=== PATIENT | female | born 1990 | race Caucasian/White ===

== ENCOUNTER 2017-07-08 14:10 | Inpatient (IN) | payer OTHER ==
--- NOTE | 2017-07-08 14:52 | HP ---
General Information - General Information Maternal Age: 27 Grav: 2 Para: 1 SAB: 0 IEA: 0 Estimated Due Date: 07/11/17 Determined By: Early Ultrasound Gestational Age in Weeks and Days: 39 Weeks and 4 Days Maternal Blood Type and Rh: B Positive - Results this Serology/RPR Result: Non-Reactive Rubella Result: Immune HBsAg Result: Negative HIV Result: Negative GBS Culture Result: Negative Past Medical History Delivery History: Hx Uncomplicated Vaginal Delivery Past Medical History Comment: varicose veins, R leg hx migraine Pertinent Past Surgical History: None Pertinent Family History: Non-Contributory - Antepartal Records Antepartal Records: Reviewed, Uncomplicated Review of Systems Constitutional: Comfortable CV Complaint: No Respiratory: Shortness of Breath: No Gastrointestinal: No Nausea/Vomiting - Constipation Genitourinary: No Leaking Fluid Musculoskeletal: Contractions Neurological: No Headache, No Visual Changes Movement: Normal Exam Allergies/Adverse Reactions: Allergies MS Amoxicillin [Amoxicillin] Allergy (Verified 01/22/15 16:32) Hives 137/76 97.6-89-18 - Measurements Height: 5 ft 9.5 in Weight: 196 lb Weight in lbs: 196 Body Mass Index (BMI): 28.5 Pre- Weight: 155 lb Weight Gained This : 41 lbs and 0 ozs - Exam Breast: - - soft, no masses Extremities: No Edema - varicosities R leg, spider veins, L leg Heart: Normal Rhythm/Heart Sounds HEENT: No Significant Findings Lungs: Clear Bilaterally Reflexes: DTR 2+ Thyroid: No Thyromegaly - Abdominal Exam Abdomen Exam: Non-Tender - Ultrasound/Biophysical Profile Ultrasound Status: Not Done Targeted Exam Findings See L&D Outpatient Visit Provider Note for Findings: N/A Estimated Weight: 7.5 lbs Cervical Exam: 6cm Effacement: 100% Station: 0 Presenting Part: Vertex Membrane Status: Bulging EFM Findings - External Monitor Findings Baseline Heart Rate: 130 External Monitor Findings: Accelerations Present, No Pattern of Variable or Late Decelerations, Variability Moderate External Monitor Findings Comment: category 1 Contractions: Moderate, 45-90 Seconds Contraction Frequency: every 2-4 minutes Assessment/Plan - Reason for Visit Reason for Visit: labor - Plan Plan: Active Labor Plan Comment: will admit, anticipate vaginal delivery - Date/Time of Admission Date of Admission: 07/08/17 Time of Admission: 14:30
[2017-07-08] MEDS ORDERED: Glycerin ADULT SUPP PR PRN (18:26)
[2017-07-08] MEDS ORDERED: Witch Hazel PAD* JAR TOPICAL PRN (18:26)
[2017-07-08] MEDS ORDERED: Acetaminophen TAB* 325 MG PO PRN (18:26)
[2017-07-08] MEDS ORDERED: OXYTOCIN* 10 UNITS/ML 1 ML VIAL IM ONE (18:26)
[2017-07-08] MEDS ORDERED: Dibucaine 1% 28.35 GM TUBE PR PRN (18:26)
[2017-07-08] MEDS: Ibuprofen TAB* 600 MG PO PRN (18:48)
[2017-07-08] MEDS: Docusate CAP* 100 MG PO SCH (22:01)
[2017-07-09] MEDS: Ibuprofen TAB* 600 MG PO PRN ×4 (00:28→21:40)
[2017-07-09 06:54] LABS: Hematocrit 29 % (35-47); Hemoglobin 9.2 g/dl (12.0-16.0); Mean Corpuscular HGB Conc 32 g/dl (31-36); Mean Corpuscular Hemoglobin 24 pg (27-31); Mean Corpuscular Volume 76 fL (80-97); Mean Platelet Volume 9.2 um3 (7.4-10.4); Platelet Count 165 10^3/ul (150-450); Red Blood Count 3.77 10^6/ul (4.0-5.4); Red Cell Distribution Width 17 % (10.5-15); White Blood Count 15.4 10^3/ul (3.5-10.8)
[2017-07-09] MEDS: Docusate CAP* 100 MG PO SCH ×3 (08:59→20:44)
[2017-07-09] MEDS: Ferrous Gluconate TAB* 324 MG TAB PO SCH ×2 (08:59→20:44)
[2017-07-10] MEDS: Ibuprofen TAB* 600 MG PO PRN ×2 (03:48→10:50)
[2017-07-10] MEDS: Docusate CAP* 100 MG PO SCH (07:59)
[2017-07-10] MEDS: Ferrous Gluconate TAB* 324 MG TAB PO SCH (07:59)
[2017-07-10 09:41] VITALS: BP 100/63
== END 2017-07-10 11:23 | disposition home or self-care (01) | DRG 775 ==
LOC: MCHOBOUT 14:10 → MCHOB 14:47
PROVIDERS: ADMIT Midwife; ATTEND Midwife
PROC: 10E0XZZ Delivery of Products of Conception, External Approach (ICD-10-PCS; principal; 2017-07-08)
PROC: 0HQ9XZZ Repair Perineum Skin, External Approach (ICD-10-PCS; 2017-07-08)
DX: O70.0 First degree perineal laceration during delivery (principal); O90.81 Anemia of the puerperium; D64.9 Anemia, unspecified; Z3A.39 39 weeks gestation of pregnancy; Z37.0 Single live birth
CPT/HCPCS: 36415; 85027; A9270-GY

== ENCOUNTER 2017-08-02 15:48 | Emergency (ER) | payer OTHER ==
[2017-08-02 17:56] VITALS: BP 115/59
--- NOTE | 2017-08-02 18:23 | UC ---
Complaint Female HPI - HPI Summary HPI Summary: 27 yo female with the onset last PM of frequency and urgency of urination no f/c mild LBP no n/v she is 3 1/2 weeks pp had a rash with amox as a child - History Of Current Complaint Chief Complaint: UCGU Stated Complaint: URINARY Time Seen by Provider: 08/02/17 18:04 Hx Obtained From: Patient Hx Last Menstrual Period: 01/19/15 Onset/Duration: Gradual Onset, Lasting Hours Timing: Intermittent Severity Initially: Mild Severity Currently: Mild Pain Intensity: 0 Pain Scale Used: 0-10 Numeric Associated Signs And Symptoms: Positive: Vaginal Bleeding/Discharge - lochia - Allergies/Home Medications Allergies/Adverse Reactions: Allergies Allergy/AdvReac Type Severity Reaction Status Date / Time amoxicillin Allergy Hives Verified 08/02/17 17:57 PMH/Surg Hx/FS Hx/Imm Hx Previously Healthy: Yes - Surgical History Surgical History: Yes Surgery Procedure, Year, and Place: TONSILLECTOMY - Family History Known Family History: Negative: Cardiac Disease, Hypertension, Diabetes - Social History Alcohol Use: None Substance Use Type: None Smoking Status (MU): Never Smoked Tobacco Have You Smoked in the Last Year: No - Immunization History Most Recent Influenza Vaccination: unknown Most Recent Tetanus Shot: 08/27/13 Most Recent Pneumonia Vaccination: never Review of Systems Constitutional: Negative Skin: Negative Eyes: Negative ENT: Negative Respiratory: Negative Cardiovascular: Negative Gastrointestinal: Negative Genitourinary: Frequency, Urgency Motor: Negative Neurovascular: Negative Musculoskeletal: Negative Neurological: Negative Psychological: Negative Is Patient Immunocompromised?: No All Other Systems Reviewed And Are Negative: Yes Physical Exam Triage Information Reviewed: Yes Appearance: Well-Appearing, No Pain Distress, Well-Nourished Vital Signs: Initial Vital Signs Temp 98.2 F 08/02/17 17:52 Pulse 87 08/02/17 17:52 Resp 17 08/02/17 17:52 BP 115/59 08/02/17 17:52 Pulse Ox 100 08/02/17 17:52 Eyes: Positive: Conjunctiva Clear ENT: Positive: Hearing grossly normal. Negative: Nasal congestion, Nasal drainage, Trismus, Muffled voice, Hoarse voice Neck: Positive: Supple, Nontender Respiratory: Positive: Lungs clear, Normal breath sounds, No respiratory distress, No accessory muscle use Cardiovascular: Positive: RRR, No Murmur Abdomen Description: Positive: Nontender, No Organomegaly, Soft. Negative: CVA Tenderness (R), CVA Tenderness (L) Bowel Sounds: Positive: Present Musculoskeletal: Positive: ROM Intact, No Edema Neurological: Positive: Alert Psychological Exam: Normal Skin Exam: Normal Diagnostics - Laboratory Diagnostic Studies Completed/Ordered: UA ++RBCs, + leuks Complaint Female Dx - Differential Dx/Diagnosis Provider Diagnoses: frequency and uregency of urinations. suspect UTI Discharge - Sign-Out/Discharge Documenting (check all that apply): Discharge/Admit/Transfer - Discharge Plan Condition: Stable Disposition: HOME Prescriptions: Cephalexin CAP* [Keflex CAP*] 500 mg PO BID #10 cap Patient Education Materials: Urinary Tract Infection in Women (ED) Referrals: Non Staff,Doctor [Primary Care Provider] - Additional Instructions: recheck for new or worsening symptoms if not better in 48-72 hours call us to check for culture results - Billing Disposition and Condition Condition: STABLE Disposition: Home
== END 2017-08-02 18:21 | disposition home or self-care (01) ==
LOC: UCCORT 15:48
DX: R35.0 Frequency of micturition (principal); R39.15 Urgency of urination; Z88.0 Allergy status to penicillin
CPT/HCPCS: 81003; 87086; 99212; G0463

== ENCOUNTER 2019-04-17 18:19 | Inpatient (IN) | payer OTHER ==
[2019-04-17] MEDS ORDERED: Lactated Ringers 1000 ML Bag* 1,000 ML IV ONE (18:46)
[2019-04-17] MEDS ORDERED: Buffered Lidocaine 1% SYRIN* 1 ML/SYRINGE INTRADERM ONE (18:46)
[2019-04-17] MEDS ORDERED: Lactated Ringers 1000 ML Bag* 1,000 ML IV SCH ×2 (19:00→21:00)
--- NOTE | 2019-04-17 19:08 | HP ---
General Information - Reason for Visit Pt reports ctx starting around 1600, increasing in strength and intensity. Denies SROM. - General Information Maternal Age: 29 Grav: 3 Para: 2 SAB: 0 IEA: 0 Estimated Due Date: 04/20/19 Determined By: LMP Gestational Age in Weeks/Days: 39 / Maternal Blood Type and Rh: B Positive - Results this Serology/RPR Result: Non-Reactive Rubella Result: Immune HBsAg Result: Negative HIV Result: Negative GBS Culture Result: Negative Past Medical History Delivery History: Hx Uncomplicated Vaginal Delivery Pertinent Past Medical History: See Records - migraine, varicose veins Pertinent Past Surgical History: None Pertinent Family History: Non-Contributory - Antepartal Records Antepartal Records: Reviewed, Complicated by: - Anemia Review of Systems Constitutional: Uncomfortable CV Complaint: No Respiratory: Shortness of Breath: No Gastrointestinal: No Nausea/Vomiting, Normal Bowel Movement Genitourinary: No Dysuria, No Bleeding, No Leaking Fluid Musculoskeletal: No Epigastric Pain, Contractions Neurological: No Headache, No Visual Changes Movement: Normal Exam Allergies/Adverse Reactions: Allergies amoxicillin Allergy (Verified 08/02/17 17:57) Hives T-98.0, P-91, R-22, BP- 129/78 - Measurements Height: 5 ft 10 in Weight: 89.811 kg Weight in lbs: 198.178470 Body Mass Index (BMI): 28.4 Pre- Weight: 70.307 kg Weight Gained This : 43 lbs and 0 ozs - Exam Breast: Breast Exam Deferred CVA: No CVA Tenderness Extremities: No Edema Heart: Normal Rhythm/Heart Sounds HEENT: No Significant Findings Lungs: Clear Bilaterally Rectal: Rectal Exam Deferred Reflexes: DTR 2+ Thyroid: No Thyromegaly - Abdominal Exam Abdomen Exam: Non-Tender, Fundal Height Consistent with Dates - Ultrasound/Biophysical Profile Ultrasound Status: Not Done Targeted Exam Findings See L&D Outpatient Visit Provider Note for Findings: N/A Estimated Weight: 7.5# Cervical Exam: 6cm Effacement: 80% Station: 0 Presenting Part: Vertex Membrane Status: Intact Bleeding/Discharge: None EFM Findings - External Monitor Findings Baseline Heart Rate: 135 External Monitor Findings: Accelerations Present, No Pattern of Variable or Late Decelerations, Variability Moderate, Baseline Stable Contractions: Regular, Moderate, 45-90 Seconds Contraction Frequency: 2-3 minutes Assessment/Plan - Assessment 29 year old at 39 4/7 weeks gestation in active spontaneous labor. No evidence of acidemia, membranes intact. complicated by anemia. - Plan Plan: Admit - Anticipate Vaginal Delivery - Date/Time of Admission Date of Admission: 04/17/19 Time of Admission: 18:38
[2019-04-17 20:11] LABS: Urine Benzodiazepine Screen None Detected (None Detect); Urine Opiates Screen None Detected (None Detect)
[2019-04-17] MEDS ORDERED: Glycerin ADULT SUPP PR PRN (20:54)
[2019-04-17] MEDS ORDERED: Dibucaine 1% 28.35 GM TUBE PR PRN (20:54)
[2019-04-17] MEDS ORDERED: OXYTOCIN* 10 UNITS/ML 1 ML VIAL IM ONE (20:54)
[2019-04-17] MEDS: Ibuprofen TAB* 600 MG PO PRN (21:30)
--- NOTE | 2019-04-17 21:38 | PROCNOTE ---
[facility] OB: Delivery Note - Delivery A Date of : 04/17/19 Time of : 20:28 [place] Sex: Male Weight at : 3.825 kg Score 1 Minute: 9 Score 5 Minutes: 9 Gestational Age in Weeks and Days at Delivery: 39 Weeks and 4 Days Delivery Method: Spontaneous Vaginal Labor: Spontaneous Did Patient attempt ?: N/A, No Previous Amniotic Fluid: Clear Estimated Blood Loss: 350 Anesthesia/Analgesia: None Delivered By: Cata Manning - Nursery Level of Nursery: Regular/Bedside - Perineum Perineal Injury: 1st Degree Perineal Repair: By Delivering Practioner - Events Delivery Events of Note: Pitocin Only After Delivery - Risk for Falls Delivered OB Patient- Risk for Falls: Visual Impairment Fall Risk: Patient is at High Risk for Falls - Additional Delivery Notes Additional Delivery Notes: Pt admitted to L&D in active spontaneous labor. Pt progressed steadily, using position changes and breathing techniques for pain relief. AROM performed at 9cm dilation and pt soon began spontaneous pushing efforts with rapid descent. Pt coached through slow, controlled delivery of the head. Nuchal cord noted and infant somersaulted through cord. placed on maternal abdomen with vigorous cry and good tone. Placenta soon began to separate and cord clamped x2 and cut by pt's mother. Placenta delivered elizabeth side with trailing membranes, teased out with ring forceps. Pt declined IV in labor, but agreed to prophylactic Pitocin IM. Fundus firm and some clots expressed after which bleeding was minimal. Inspection of the perineum revealed small first degree laceration. Repaired using Vicryl 3-0 suture resulting in good hemostasis and tissue approximation. Mother and stable at this time, anticipate normal course.
[2019-04-17] MEDS: Witch Hazel PAD* JAR TOPICAL PRN (21:52)
[2019-04-17] MEDS ORDERED: Lidocaine 1% INJ* 10 MG/ML 30 ML SDV ONE (22:44)
[2019-04-18] MEDS: Acetaminophen TAB* 325 MG PO PRN ×2 (00:36→08:18)
[2019-04-18] MEDS ORDERED: Lidocaine 1% INJ* 10 MG/ML 30 ML SDV ONE (03:09)
[2019-04-18] MEDS: Ibuprofen TAB* 600 MG PO PRN ×2 (04:00→19:53)
[2019-04-18 05:48] LABS: Hematocrit 25 % (35-47); Hemoglobin 7.8 g/dL (12.0-16.0); Mean Corpuscular HGB Conc 31 g/dL (31-36); Mean Corpuscular Hemoglobin 22 pg (27-31); Mean Corpuscular Volume 70 fL (80-97); Mean Platelet Volume 8.8 fL (7.4-10.4); Platelet Count 204 10^3/uL (150-450); Red Cell Distribution Width 19 % (10-15); White Blood Count 12.8 10^3/uL (3.5-10.8)
[2019-04-18 07:47] LABS: ABS Monocytes 0.7 10^3/ul (0-0.8); Eosinophil % 0.2 %; Lymphocyte % 15.9 %
[2019-04-18] MEDS: Docusate CAP* 100 MG PO SCH ×3 (08:18→20:44)
[2019-04-18 08:25] LABS: Microcytosis 2+
[2019-04-18 08:27] LABS: Polychromasia 1+
[2019-04-18] MEDS ORDERED: Varicella Virus Vaccine Live* 0.5 ML VIAL SUBCUT ONE (09:00)
[2019-04-18] MEDS: Ferrous Gluconate TAB* 324 MG TAB PO SCH ×2 (09:51→20:44)
[2019-04-18 17:29] LABS: Hematocrit 24 % (35-47); Hemoglobin 7.7 g/dL (12.0-16.0); Mean Corpuscular HGB Conc 32 g/dL (31-36); Mean Corpuscular Hemoglobin 22 pg (27-31); Mean Corpuscular Volume 70 fL (80-97); Mean Platelet Volume 8.9 fL (7.4-10.4); Platelet Count 211 10^3/uL (150-450); Red Blood Count 3.47 10^6 /uL (3.70-4.87); Red Cell Distribution Width 19 % (10-15); White Blood Count 10.5 10^3/uL (3.5-10.8)
[2019-04-18] MEDS ORDERED: Misoprostol TAB* 200 MCG PR ONE (19:24)
[2019-04-19 05:32] LABS: ABS Basophils 0.1 10^3/ul (0-0.2); ABS Eosinophils 0.2 10^3/ul (0-0.6); ABS Lymphocytes 2.7 10^3/ul (1.0-4.8); ABS Monocytes 0.8 10^3/ul (0-0.8); ABS Neutrophils 7.2 10^3/ul (1.5-7.7); Eosinophil % 1.6 %; Hematocrit 24 % (35-47); Hemoglobin 7.4 g/dL (12.0-16.0); Lymphocyte % 24.8 %; Mean Corpuscular HGB Conc 31 g/dL (31-36); Mean Corpuscular Hemoglobin 22 pg (27-31); Mean Corpuscular Volume 72 fL (80-97); Platelet Count 200 10^3/uL (150-450); Red Blood Count 3.32 10^6 /uL (3.70-4.87); Red Cell Distribution Width 20 % (10-15)
[2019-04-19 09:24] VITALS: BP 108/62
[2019-04-19] MEDS: Ibuprofen TAB* 600 MG PO PRN (09:39)
[2019-04-19] MEDS: Ferrous Gluconate TAB* 324 MG TAB PO SCH (09:39)
[2019-04-19] MEDS: Docusate CAP* 100 MG PO SCH (09:39)
[2019-04-19] MEDS: Witch Hazel PAD* JAR TOPICAL PRN (09:40)
== END 2019-04-19 11:52 | disposition home or self-care (01) | DRG 560 ==
LOC: MCHOBOUT 18:19 → MCHOB 18:38
PROVIDERS: ADMIT Midwife; ATTEND Midwife
PROC: 10E0XZZ Delivery of Products of Conception, External Approach (ICD-10-PCS; principal; 2019-04-17)
PROC: 0HQ9XZZ Repair Perineum Skin, External Approach (ICD-10-PCS; 2019-04-17)
DX: O99.02 Anemia complicating childbirth (principal); Z37.0 Single live birth; D64.9 Anemia, unspecified; O99.344 Other mental disorders complicating childbirth; F41.8 Other specified anxiety disorders; O70.0 First degree perineal laceration during delivery; O69.81X0 Labor and delivery complicated by cord around neck, without compression, not applicable or unspecified; O90.81 Anemia of the puerperium; Z3A.39 39 weeks gestation of pregnancy
CPT/HCPCS: 36415; 80307; 85025; 85027; 85060; 86850; 86900; 86901; A9270-GY; G0480; J2590

== ENCOUNTER 2020-11-05 08:05 | Inpatient (IN) ==
[2020-11-05] MEDS ORDERED: Lactated Ringers 1000 ml BAG 1,000 ML IV ONE ×2 (08:45→15:01)
[2020-11-05] MEDS ORDERED: Buffered Lidocaine 1% SYRIN 1 ml INTRADERM ONE (08:45)
[2020-11-05] MEDS ORDERED: Lactated Ringers 1000 ml BAG 1,000 ML IV SCH ×3 (09:00→18:00)
[2020-11-05 09:20] LABS: Urine Benzodiazepine Screen None Detected (None Detect); Urine Opiates Screen None Detected (None Detect)
[2020-11-05 10:05] LABS: Rapid COVID-19 Molecular Undetected (Undetected)
[2020-11-05 10:43] LABS: Hematocrit 40 % (35-47); Hemoglobin 13.5 g/dL (12.0-16.0); Mean Corpuscular HGB Conc 34 g/dL (31-36); Mean Corpuscular Hemoglobin 29 pg (27-31); Mean Corpuscular Volume 87 fL (80-97); Mean Platelet Volume 9.4 fL (7.4-10.4); Platelet Count 167 10^3/uL (150-450); Red Blood Count 4.59 10^6 /uL (3.70-4.87); Red Cell Distribution Width 23 % (10-15); White Blood Count 8.6 10^3/uL (3.5-10.8)
[2020-11-05 10:46] LABS: ABS Basophils 0.1 10^3/ul (0-0.2); ABS Eosinophils 0.1 10^3/ul (0-0.6); ABS Lymphocytes 1.4 10^3/ul (1.0-4.8); ABS Monocytes 0.8 10^3/ul (0-0.8); ABS Neutrophils 6.2 10^3/ul (1.5-7.7); Lymphocyte % 16.8 %; Nucleated Red Blood Cells % 0.1
[2020-11-05] MEDS ORDERED: OBEPIDURAL 250 ML EPIDURAL ONE (14:33)
[2020-11-05] MEDS ORDERED: Phenylephrine 40 mcg/mL 10mL (400mcg) SYRINGE IV PUSH PRN ×2 (15:01)
[2020-11-05] MEDS ORDERED: Sodium Citrate/Citric Acid LIQ 15 ML UDC PO PRN (15:01)
[2020-11-05] MEDS ORDERED: OBEPIDURAL 250 ML EPIDURAL SCH (16:00)
[2020-11-05] MEDS ORDERED: Oxytocin in LR 20 UNITS/1,000 ML BAG IVPB ONE (16:37)
[2020-11-05] MEDS ORDERED: Dibucaine 1% OINT 28.35 GM TUBE PR PRN (17:14)
[2020-11-05] MEDS ORDERED: Witch Hazel PAD JAR TOPICAL PRN (17:14)
[2020-11-05] MEDS ORDERED: Oxytocin in LR 20 UNITS/1,000 ML BAG IVPB SCH (18:00)
[2020-11-06 06:59] LABS: Hematocrit 37 % (35-47); Hemoglobin 12.6 g/dL (12.0-16.0); Mean Corpuscular HGB Conc 35 g/dL (31-36); Mean Corpuscular Hemoglobin 30 pg (27-31); Mean Corpuscular Volume 87 fL (80-97); Mean Platelet Volume 8.7 fL (7.4-10.4); Platelet Count 144 10^3/uL (150-450); Red Blood Count 4.21 10^6 /uL (3.70-4.87); Red Cell Distribution Width 23 % (10-15); White Blood Count 9.4 10^3/uL (3.5-10.8)
[2020-11-06 07:49] LABS: ABS Basophils 0.1 10^3/ul (0-0.2); ABS Eosinophils 0.1 10^3/ul (0-0.6); ABS Lymphocytes 2.1 10^3/ul (1.0-4.8); ABS Monocytes 0.7 10^3/ul (0-0.8); ABS Neutrophils 6.5 10^3/ul (1.5-7.7); Eosinophil % 1.3 %; Lymphocyte % 22.1 %
[2020-11-06] MEDS ORDERED: Varicella Virus Vaccine Live 0.5 ML VIAL SUBCUT ONE (09:00)
[2020-11-06] MEDS ORDERED: Flu vaccine *QUAD* 2021-22* 0.5 ML SYRINGE IM ONE (09:00)
[2020-11-06 16:10] VITALS: BP 114/63
== END 2020-11-06 17:31 | disposition home or self-care (01) | DRG 560 ==
LOC: MCHOBOUT 08:05 → MCHOB 08:49
PROVIDERS: ADMIT Midwife; ATTEND Midwife

== ENCOUNTER 2024-02-22 00:05 | Inpatient (IN) ==
[2024-02-22] MEDS ORDERED: Lidocaine 1% VIAL 10 MG/ML 30 ML VIAL INJ PRN (01:18)
[2024-02-22] MEDS: Lactated Ringers 1000 ml BAG 1,000 ML IV ONE (01:30)
[2024-02-22] MEDS: Buffered Lidocaine 1% SYRIN 1 ml INTRADERM ONE (01:31)
[2024-02-22 01:56] LABS: Hematocrit 28.1 % (35-45); Mean Corpuscular Hemoglobin 22.7 pg (27-33); Mean Corpuscular Hgb Conc 32.1 g/dL (31-36); Mean Corpuscular Volume 70.7 fL (80-97); Mean Platelet Volume 8.8 fL (7.5-11.2); Platelet Count 234 10^3/uL (150-450); Red Blood Count 3.98 10^6/uL (3.63-4.92)
[2024-02-22 02:29] LABS: ABS Basophils 0.1 10^3/uL (0.0-0.1); ABS Eosinophils 0.1 10^3/uL (0.0-0.5); ABS Lymphocytes 2.1 10^3/uL (1.0-4.8); ABS Monocytes 0.6 10^3/uL (0.0-0.9); ABS Neutrophils 6.2 10^3/uL (1.5-7.6); ABS Nucleated RBC 0.01 10^3/ul; Anisocytosis 1+; Eosinophil % 0.8 %; Hypochromasia 1+; Lymphocyte % 22.8 %; Microcytosis 2+; Nucleated Red Blood Cells % 0.1 %/100WBC (0.0-0.8); Polychromasia 1+
[2024-02-22] MEDS: Lactated Ringers 1000 ml BAG 1,000 ML IV SCH (02:38)
[2024-02-22] MEDS: OBEPIDURAL (200 ML) 200 ML EPIDURAL ONE (02:38)
[2024-02-22 02:50] LABS: Urine Benzodiazepine Screen None Detected (None Detect); Urine Cannabinoids Screen None Detected (None Detect); Urine Opiates Screen None Detected (None Detect)
[2024-02-22 05:14] LABS: Urine Appearance Clear; Urine Bilirubin Negative (Negative); Urine Blood Negative (Negative); Urine Color Light-Yellow; Urine Glucose Negative (Negative); Urine Ketones Negative (Negative); Urine Nitrite Negative (Negative); Urine Protein Negative (Negative); Urine Specific Gravity 1.009 (1.002-1.030); Urine Urobilinogen Negative (Negative); Urine pH 6.5 (5.0-8.0)
[2024-02-22] MEDS: Oxytocin in LR 20,000 MILLI.UNIT/1,000 ML BAG IV SCH ×2 (05:40→06:22)
[2024-02-22] MEDS ORDERED: Glycerin ADULT 2.4 gm SUPP PR PRN (05:47)
[2024-02-22 05:58] LABS: Urine Bacteria Absent /HPF (Absent); Urine Red Blood Cell Trace(0-2/hpf) /HPF (0-Trace); Urine Squamous Epithelial Cell Present /HPF (Absent); Urine White Blood Cell Trace(0-5/hpf) /HPF (0-Trace)
[2024-02-22] MEDS ORDERED: Lactated Ringers 1000 ml BAG 1,000 ML IV SCH (06:00)
[2024-02-22] MEDS: Witch Hazel PAD JAR TOPICAL PRN (08:11)
[2024-02-22] MEDS: Dibucaine 1% OINT 28.35 GM TUBE PR PRN (08:11)
[2024-02-22] MEDS: Phenylephrine 40 mcg/mL 10mL (400mcg) SYRINGE ONE (15:24)
[2024-02-22] MEDS: Lidocaine 1.5% EPI 1:200,000 30 ML SDV ONE (15:24)
[2024-02-22] MEDS: Iron Sucrose 200 MG in NS 0.9% 100 ml BAG 100 ML IVPB ONE (18:07)
[2024-02-23 06:48] LABS: Hemoglobin 8.2 g/dL (11.5-14.3); Mean Corpuscular Hemoglobin 23.3 pg (27-33); Mean Corpuscular Hgb Conc 32.9 g/dL (31-36); Mean Platelet Volume 9.1 fL (7.5-11.2); Platelet Count 216 10^3/uL (150-450); Red Blood Count 3.53 10^6/uL (3.63-4.92); White Blood Count 10.9 10^3/uL (3.8-11.8)
[2024-02-23 07:21] LABS: ABS Basophils 0.1 10^3/uL (0.0-0.1); ABS Eosinophils 0.3 10^3/uL (0.0-0.5); ABS Lymphocytes 3.4 10^3/uL (1.0-4.8); ABS Monocytes 0.7 10^3/uL (0.0-0.9); ABS Neutrophils 6.4 10^3/uL (1.5-7.6); ABS Nucleated RBC 0.01 10^3/ul; Eosinophil % 2.5 %; Lymphocyte % 31.2 %; Nucleated Red Blood Cells % 0.1 %/100WBC (0.0-0.8)
[2024-02-23 08:08] VITALS: BP 115/68
== END 2024-02-23 10:40 | disposition home or self-care (01) | DRG 560 ==
LOC: MCHOBOUT 00:05 → MCHOB 01:07
PROVIDERS: ADMIT Advanced Practice Midwife; ATTEND Advanced Practice Midwife